=== PATIENT | female | born 1950 | race Caucasian/White ===

== ENCOUNTER → 2024-09-16 | Outpatient (REF) | payer MEDICARE ==
[~2024-09-16] MED LIST: ASPIRIN81 MG PO; B12 ACTIVE1000 MCG; CARVEDILOL6.25 MG PO; CEFDINIR300 MG PO; HYDROCODON-ACE1 EAC9 PO; IRON 100 PLUS1 EACH PO; MULTI-VITAMIN1 EACH PO; OXYBUTYNIN CHLO15 MG PO; PAXLOVID 300-11 EAC1 PO; PROVENTIL HFA6.7 GM INH; TRAZODONE HCL100 MG PO; VENLAFAXINE HC150 MG PO; VITAMIN C500 MG PO; ZITHROMAX500 MG PO
== END ==
LOC: RESP 12:52 → EDSTATUS 13:00
PROVIDERS: ATTEND Nurse Practitioner Family
DX: J45.909 Unspecified asthma, uncomplicated (principal)
CPT/HCPCS: 94060; 94727; 94729